=== PATIENT | female | born 1950 | race Caucasian/White ===

== ENCOUNTER → 2023-12-14 09:01 | Outpatient (REF) | payer MEDICARE, OTHER, SELFPAY | LOC: HWRCS 09:01 | PROVIDERS: ATTENDING PHYSICIAN Internal Medicine Cardiovascular Disease; FAMILY PHYSICIAN Family Medicine | DX: R42 Dizziness and giddiness (principal); I10 Essential (primary) hypertension; I95.1 Orthostatic hypotension | CPT/HCPCS: 93306 ==

== ENCOUNTER 2024-05-24 13:35 | Emergency (ER) | payer MEDICARE, OTHER, SELFPAY ==
[2024-05-24 13:38] VITALS: BP 181/99
[2024-05-24 13:55] LABS: % Basophils 0.7 % (0-2); % Eosinophils 1.7 % (0-6); % Immature Granulocytes 0.7 % (0-0.5); % Lymphocytes 41.9 % (20.5-51.1); % Monocytes 8.1 % (1.7-9.3); % Neutrophils 46.9 % (42.2-75.2); Absolute Basophils 0.1 10^3/uL (0-0.2); Absolute Eosinophils 0.1 10^3/uL (0-0.7); Absolute Immature Granulocytes 0.1 10^3/uL (0-0.05); Absolute Lymphocytes 3.5 10^3/uL (1.2-3.4); Absolute Monocytes 0.7 10^3/uL (0.1-0.6); Absolute Neutrophils 3.9 10^3/uL (1.4-6.5); Hematocrit 39.5 % (37.0-47.0); Hemoglobin 13.7 g/dL (12.0-16.0); Mean Corp Hgb Conc. 34.7 g/dL (33.0-37.0); Mean Corpuscular Hgb 31.7 pg (27.0-31.0); Mean Corpuscular Volume 91.4 fL (81.0-99.0); Mean Platelet Volume 8.6 fL (7.4-10.4); Nucleated Red Blood Cells % 0 %; Platelet Count 276 10^3/uL (130-400); Red Blood Cell Count 4.32 10^6/uL (4.20-5.40); Red Cell Dist. Width 12.3 % (11.5-14.5); White Blood Cell Count 8.3 10^3/uL (4.8-10.8)
[2024-05-24 14:00] VITALS: BP 144/89
[2024-05-24 14:05] LABS: ALT (SGPT) 18 U/L (0-35); AST (SGOT) 25 U/L (14-36); Albumin 4.9 g/dl (3.5-5.0); Alkaline Phosphatase 78 U/L (38-126); Blood Urea Nitrogen 31 mg/dl (7-17); Calcium 9.6 mg/dl (8.4-10.2); Carbon Dioxide 30 mmol/L (22-30); Chloride 99 mmol/L (98-107); Glucose 112 mg/dl (70-99); Potassium 4.4 mmol/L (3.5-5.1); Sodium 137 mmol/L (135-145); Total Bilirubin 0.5 mg/dl (0.2-1.3); Total Protein 7.6 g/dl (6.3-8.2); eGFR > 60.00
--- NOTE | 2024-05-24 14:21 | ED.GENMED ---
History of Present Illness
General
Chief Complaint: Blood Pressure Problem
Source: patient
Exam Limitations: none
Time Seen by Provider: 05/24/24 14:13
Nursing documentation reviewed up to this point in time: agreed with
History of Present Illness
History of Present Illness:
This is a 74-year-old female with past medical history of migraines, hypertension, GERD, presents emergency department today with concerns of elevated blood pressure and headaches. She states that she has had right sided headaches for the past week,
states that it feels different from her migraines. She also notes intermittent blurry vision. She denies visual loss, associated fevers or chills, nausea or vomiting. Denies head or neck trauma. Tylenol did not help with the headache. Patient
reports that she takes valsartan and atenolol for blood pressure. Patient recently stopped taking valsartan daily herself because she thought her pressures have been regular and well-managed. She now uses valsartan as needed for moments where her
blood pressure becomes higher but she does take atenolol every day. She follows with Dr. Kruse from cardiology. She also notes upper respiratory symptoms and feels like her sinuses are congested and feels like her facial pain is related to that.
Past History
Past History
ED Past Medical History: GERD, HTN, Hypercholesterolemia and Other (Clostridium difficile, migraine headaches)
ED Past Surgical History: Appendectomy, Cholecystectomy, Gynecological (Breast reduction) and Tonsilectomy
Social History
Tobacco: Non-smoker
Alcohol: None
Personal:
Living: with family
Employment: Not employed
Family History
Family History: Negative CAD
Review of Systems
Review of Systems
All Other Systems: ROS reviewed and negative except as documented in HPI and ROS
Phy Exam
Physical Exam
Physical Exam:
General: Patient is well appearing and in no acute distress; non-toxic
Skin: Warm and dry, no rashes or lesions
Head: Normocephalic, atraumatic. Tenderness to palpation of the frontal sinuses. Tenderness to palpation over the right temporal region. visual acquity 20/25 in left and right individually, 20/20 with both eyes open (patient was not wearing her
glasses at the time)
Eyes: Sclera non-icteric. EOMs intact. No CN palsy.
Cardiac: Regular rate and rhythm, no murmurs
Peripheral Vascular: No lower extremity swelling or edema
Pulm: Normal respiratory effort, no wheezes, rales, or rhonchi
Musculoskeletal: TMJ joints intact bilaterally no tenderness to palpation
Neuro: CN II-XII intact, no focal neurologic deficits.
Psychiatric: Appropriate mood and affect.
Course
Orders/Labs/Results
Orders:
Orders
05/24/24 13:37
Electrocardiogram (*1) Urgent
Reason for Study: Vertigo / Dizzy
EKG- Treatment ONCE
05/24/24 13:44
C-Reactive Protein Urgent
Comment: ESR & CRP ADDED ON BY FLOOR 2:30PM 05-24-34
Complete Blood Count/With Diff Urgent
Comprehensive Metabolic Panel Urgent
Erythrocyte Sed Rate Urgent
05/24/24 14:32
Add On- LAB Urgent
Tests Added?: ESR, CRP
CT Head W/o Iv Contrast Urgent
Comment:
Reason For Exam: right sided headache, blurry vision
05/24/24 14:33
Visual Acuity- Treatment ONCE
Abnormal Lab Results
05/24/24
13:44
MCH 31.7 H pg
(27.0-31.0)
Abs Immat Gran (auto) 0.1 H 10^3/uL
(0-0.05)
Absolute Lymphs (auto) 3.5 H 10^3/uL
(1.2-3.4)
Absolute Monos (auto) 0.7 H 10^3/uL
(0.1-0.6)
Immature Gran % 0.7 H %
(0-0.5)
ESR 33 H mm/hour
(0-20)
BUN 31 H mg/dl
(7-17)
Glucose 112 H mg/dl
(70-99)
05/24/24 13:44
05/24/24 13:44
Vital Signs
Initial and Last Documented VS:
Initial Vital Signs
Temp Pulse Resp BP Pulse Ox
98.0 F 74 16 181/99 96
05/24/24 13:38 05/24/24 13:38 05/24/24 13:38 05/24/24 13:38 05/24/24 13:38
Last Documented Vital Signs
Temp Pulse Resp BP Pulse Ox
98.0 F 72 17 144/89 96
05/24/24 13:38 05/24/24 14:00 05/24/24 14:00 05/24/24 14:00 05/24/24 15:15
MDM/Problems Addressed
Differential Diagnosis Includes:
tension headache, migraine headache, intraparenchymal hemorrhage, temporal arteritis
MDM/Problems Addressed:
74-year-old female with past medical history of hypertension, GERD, hyperlipidemia presents to the emergency department today with concerns of intermittent transient blurry vision as well as intermittent headaches for the past week. The headache is
mainly on the right side of the head but also radiates to the front in a band and she also feels it on the right side as well. Patient has associated sinus congestion and runny nose. Patient states that she feels like she has a sinus infection.
Patient has had chronic sinus infections in the past. States his headache she had now feels different from her migraines. Physical exam she is well-appearing no acute distress she does have tenderness to the sinuses and does have tenderness over
the right adventism however her visual acuity is intact. She got a CAT scan of the head which showed no acute intracranial abnormality. I suspect patient's symptoms related to sinusitis versus a tension headache. I advised patient to resume her
normal blood pressure regimen. Patient's blood pressure came down here in emergency department without intervention. Did considered giant cell arteritis as a diagnosis however patient does not have any true visual loss no associated jaw pain and
has she has normal exam. Patient does have a follow-up with her PCP coming up and I advised patient to continue to monitor her symptoms. Patient stable for discharge.
Chronic conditions affecting care:
GERD, migraines, HTN
*Pulse Oximetry
Patient hypoxic: no
*Critical Care Note
Total Time (30-74mins, 75-104mins- exclusive of procedures): Not Applicable
Data Reviewed
Review of Other/Old Records Reveals: Records (Reviewed ER physician documentation from 12/28/2022 patient seen for fracture of rib) and Discharge Summary (No prior discharge summary to review)
Source: patient and records
Patient Management
Escalation/DeEscalation of care consider admission/obs:
case reviewed with my attending
patient stable for discharge
ED Attending Note
-
Portions of this chart may have been created with voice recognition software.� Occasional wrong word or��sound alike� substitutions may have occurred due to the inherent limitations of voice recognition software.
Discharge Plan
Departure
Patient Disposition: Home (Routine Discharge)
Date of Disposition: 05/24/24
Time of Disposition: 18:16
Patient with high blood pressure during this ER visit?: Yes
Condition: Good
Discharge Problem:
Generalized headaches, Chronic sinusitis, Hypertension
Instructions: Tension Headache, Sinusitis in adults, BLOOD PRESSURE
Prescriptions:
New
doxycycline hyclate 100 mg capsule
100 mg PO BID 7 Days Qty: 14 0RF
No Action
atorvastatin 10 MG tablet
10 mg PO QPM
atenolol 25 MG tablet
25 mg PO BID
ondansetron 4 MG tablet,disintegrating
4 mg PO QIDPRN PRN (Reason: NAUSEA) Qty: 15 0RF
alprazolam 0.25 MG tablet
0.25 mg PO Q8HPRN PRN (Reason: anxiety)
dicyclomine 20 MG tablet
40 mg PO DAILYPRN PRN (Reason: pain)
Porscheacidoph,cathyi,B.animalis 1 EACH capsule
1 ea PO DAILY
Magnesium
1,000 mg PO DAILY
Valerian Root
2 capsules PO BID
Co Q-10
1 tab PO DAILY
Vitamin D
1 tab PO DAILY
lansoprazole 30 MG capsule,delayed release(DR/EC)
30 mg PO DAILY
hyoscyamine sulfate 0.125 MG tablet, sublingual
1 tab PO PRN PRN (Reason: stomach spasms)
irbesartan 300 MG tablet
300 mg PO DAILY
prednisone 50 MG tablet
50 mg PO DAILY Qty: 1 0RF
epinephrine [EpiPen] 0.3 MG/0.3/SYRINGE auto-injector
0.3 mg IM UD Qty: 1 0RF
cyclobenzaprine 5 mg tablet
5 mg PO BID PRN (Reason: muscle spasm) Qty: 10 0RF
tramadol 50 mg tablet
50 mg PO Q8H PRN (Reason: Pain) Qty: 10 0RF
Referrals:
Grady Garzon DO [Family Provider] -
Activity Restrictions/Additional Instructions:
Please follow up with your [facility] regarding your sinus infections.
Doxycycline has been sent to your pharmacy. Please take 1 tablet twice daily for 7 days.
Please resume your blood pressure medicine regimen of atenolol and valsartan as instructed by your primary care provider. Please keep a log of your blood pressures.
When you follow up with your primary care provider as scheduled. Signs of temporal arteritis (giant cell arteritis) to look out for to alert your PCP about would be vision loss, jaw pain with eating, loss of appetite, fevers, persistent symptoms.
PLEASE RETURN EMERGENCY DEPARTMENT SHOULD YOU DEVELOP VISUAL LOSS, INABILITY TO SEE, FAINTING SPELLS, NECK PAIN, DIZZINESS, LIGHTHEADEDNESS, CHEST PAIN, ANY OTHER SIGNS OR SYMPTOMS CONCERNING.
Interventions
Interventions:
*Risk Screen - Suicide Last Done: 05/24/24 13:38
*General Assessment Last Done: 05/24/24 13:38
*Neglect/Abuse Screening Last Done: 05/24/24 13:38
*ED COVID-19 Vaccine History Last Done: 05/24/24 13:38
*Nursing Disposition Last Done: 05/24/24 18:50
ED- Cardiac Assessment Last Done: 05/24/24 13:43
ED- Neurological Assessment Last Done: 05/24/24 13:43
ED- Pulmonary Assessment Last Done: 05/24/24 13:43
Discharge Date and Time
Discharge Date/Time: 05/24/24 18:52
Print Language: NEPALI
[2024-05-24 15:22] LABS: Erythrocyte Sed Rate 33 mm/hour (0-20)
== END 2024-05-24 18:52 | disposition home or self-care (01) ==
LOC: EMR 13:35
PROVIDERS: Emergency Medicine; EMERGENCY PHYSICIAN Student in an Organized Health Care Education/Training Program; FAMILY PHYSICIAN Family Medicine
DX: J32.2 Chronic ethmoidal sinusitis (principal); I10 Essential (primary) hypertension; E78.00 Pure hypercholesterolemia, unspecified; K21.9 Gastro-esophageal reflux disease without esophagitis; Z91.128 Patient's intentional underdosing of medication regimen for other reason; Z79.899 Other long term (current) drug therapy
CPT/HCPCS: 99284; 70450; 80053; 85025; 85652; 86140; 93005